=== PATIENT | female | born 2005 | race Caucasian/White ===

== ENCOUNTER 2024-07-02 15:11 | Emergency (ER) | payer MEDICAID, OTHER ==
[~2024-07-02] VITALS: Ht 165.1 cm; Wt 100.7 kg
[2024-07-02] MEDS ORDERED: NAP500T GT (17:42)
[2024-07-02 17:47] VITALS: BP 134/76; PULSE 84; RESP 16; O2SAT 99
== END 2024-07-02 19:24 | disposition left against medical advice (07) ==
LOC: ER 15:11
DX: S60.221A Contusion of right hand, initial encounter (principal); X58.XXXA Exposure to other specified factors, initial encounter; Y93.89 Activity, other specified; Y92.89 Other specified places as the place of occurrence of the external cause; Y99.8 Other external cause status
CPT/HCPCS: 71045; 72070; 72100; 73130